=== PATIENT | female | born 1975 | race Caucasian/White ===

== ENCOUNTER 2021-04-03 11:09 | Outpatient (REF) | payer SELFPAY ==
[2021-04-05 17:02] LABS: COVID-19 RT-PCR UVMMC Result Negative (Negative)
== END 2021-04-03 11:10 | disposition home or self-care (01) ==
LOC: LBN 11:09
PROVIDERS: Visit Provider Nurse Practitioner Family
DX: Z20.822 Contact with and (suspected) exposure to COVID-19 (principal); J06.9 Acute upper respiratory infection, unspecified
CPT/HCPCS: U0003

== ENCOUNTER 2021-04-03 11:26 | Outpatient (CLI) | payer SELFPAY ==
--- NOTE | 2021-04-03 | DI.RAD_ITS ---
Exam(s) XR CHEST 2V PA LATERAL EXAM: XR CHEST 2V PA LATERAL CLINICAL HISTORY: DYSPNEA R06.00. TECHNIQUE: 2D digital imaging was performed. COMPARISON: No exams were available for comparison FINDINGS: Scoliosis in the lower thoracic spine convex right Heart size is normal. The mediastinum is not widened. Lungs are clear. No infiltrates nor pleural effusions. IMPRESSION: No acute pulmonary findings.Scoliosis convex right noted DATA REPOSITORY: RADIATION DOSE DELIVERED:
== END 2021-04-03 11:46 ==
PROVIDERS: Visit Provider Nurse Practitioner Family
DX: R06.00 Dyspnea, unspecified (principal); M41.9 Scoliosis, unspecified
CPT/HCPCS: 71046

== ENCOUNTER 2022-09-21 00:43 | Outpatient (CLI) | payer OTHER, SELFPAY ==
--- NOTE | 2022-09-21 | DI.MRI_ITS ---
Exam(s) MR LUMBAR SPINE WO EXAM: MR LUMBAR SPINE WO CLINICAL HISTORY: [id number],WORSENING BACK PAIN,LTHIP PAIN. TECHNIQUE: Multiplanar multisequence MRI of the Lumbar spine was performed. COMPARISON: CR XR CHEST 2V PA LATERAL from 04/03/2021 FINDINGS: Five lumbar vertebrae are presumed. There is mild scoliosis convex left. This is part of a bidirect ional thoracolumbar scoliosis as seen on prior chest x-ray March 2021. Conus medullaris is at normal level. There is no evidence of conus mass nor subjacent clumping of in trathecal nerve roots to suggest arachnoiditis. The distal thecal sac appears unremarkable.There is no evidence of Tarlov intrasacral cysts nor other significant findings within the sacral canal Bones:There are no fractures nor ominous osseous lesions in the lumbar vertebral bodies and visualize d sacrum. With respect to the individual levels... T12-L1: Unremarkable L1-2: Normal disc height and signal. No disc herniation nor central canal stenosis.No foraminal steno sis L2-3: Normal disc height. No disc herniation nor central canal stenosis.No foraminal stenosis.No face t arthropathy. L3-4: Normal disc height. Mild annular bulging in the floor of the exiting right neural foramen. No prominent disc herniation. No central canal stenosis.No foraminal stenosis.Mild-moderate bilateral facet arthropathy. L4-5: Minimal decreased disc height. There is mild anterolisthesis L4 upon L5 which is due to bilate ral facet arthropathy. There is increased signal within the synovial cavity of both facet joints at this level. There is also a degenerative synovial cyst in the left lateral recess at this level comi ng off of the left facet joint, this centrally hyperintense and peripherally hypointense degenerative synovial cyst measuring approximately 7 x 6 x 8 mm. There is approximately 7 millimeters anterior l isthesis of L4 upon L5. There is no disc herniation but there is typical pseudo herniation of the an nulus. There is mild-moderate central canal stenosis due to the listhesis. There is some narrowing of the left lateral recess by the synovial cyst. There is mild bilateral foraminal stenosis. Howeve r, there is no prominent flattening of the exiting nerve roots between the overlying L4 pedicles and subjacent pseudo herniation of the annulus. There are degenerative synovial cysts off the posterior aspect of the left facet this level. L5-S1: This disc space exhibits mild narrowing and some Modic type 1 sub endplate fatty marrow edema. However, there is no significant disc herniation at this level. Central canal dimensions are lower normal. No significant foraminal stenosis at this level. Minimal degenerative changes in the facet joints. Soft tissues: paraspinal soft tissues appear unremarkable. IMPRESSION: 1. The main findings here at L4-5 level where there is 7 mm anterolisthesis of L4 upon L5 due to sign ificant facet joint degenerative changes (no obvious pars defects evident at this level). This resul ts in mild central canal stenosis and mild bilateral foraminal stenosis as described above. Also at the L4-5 level is a 7 x 6 x 8 millimeter degenerative synovial cyst which is coming off of the anteri or aspect of the left facet joint and occupying part of the left lateral recess at this level. This may produce similar clinical findings to a disc protrusion in the left lateral recess at this level. A smaller degenerative synovial cyst is also noted coming off the posterior aspect the left facet melissa int at this level. 2. Other findings as above. DATA REPOSITORY:
== END 2022-09-21 01:03 ==
PROVIDERS: Visit Provider Physician Assistant Medical
DX: M54.50 Low back pain, unspecified (principal); M43.16 Spondylolisthesis, lumbar region
CPT/HCPCS: 72148